=== PATIENT | male | born 1990 | race Two or more races ===

== ENCOUNTER 2017-01-07 13:18 | Emergency (ER) | payer SELFPAY ==
--- NOTE | ~2017-01-07 | CR72 ---
[facility] A Service of [facility] & [facility] RADIOLOGY TEXT RESULTS PATIENT: FELIPE GILES LOCATION: [facility] : [birth year] UNIT #: [id number] AGE: [address]: Geraldine Tavarez MD SEX: M ORDER DR: [id number] [facility] [address] [place], [place] [address] [id number] MR#: [id number] Acc #: [id number] NAME: FELIPE GILES : 1990 SEX: M STUDY DATE/TIME: 01/07/2017 14:32 UNIT: [facility] ROOM: STUDY DESCRIPTION: CR Chest Single View Portable Attending Physician: Geraldine Tavarez M.D. Ordering Physician: Geraldine Tavarez M.D. Primary Care Physician: No Primary Care Physician MEDICAL IMAGING REPORT This report is preliminary unless electronic signature is present EXAM Portable chest. INDICATION Wheezing and shortness of breath today. COMPARISON No comparisons. FINDINGS Lungs are well expanded and clear. Heart size normal. The visualized osseous structures are unremarkable. IMPRESSION No active disease. Dictated by... Danish Salmeron M.D. THIS IS AN ELECTRONICALLY VERIFIED REPORT Danish Salmeron M.D. at 01/07/2017 5:06 PM MISSY/shamika TD: 01/07/2017 16:27 JOB #: [id number] MEDICAL IMAGING REPORT Page 1 of 1 COPY
--- NOTE | ~2017-01-07 | EKG ---
PATIENT: FELIPE GILES UNIT #: [id number] Ventricular Rate: 81 BPM Atrial Rate: 81 BPM P-R Interval: 152 ms QRS Duration: 90 ms Q-T Interval: 324 ms QTC Calculation(Bezet): 376 ms P [place]: 67 degrees Calculated R [place]: 61 degrees Calculated T [place]: 35 degrees Diagnosis Line: Normal sinus rhythm with sinus arrhythmia Diagnosis Line: Normal ECG Diagnosis Line: No previous ECGs available Diagnosis Line: Confirmed by REBECA ESPARZA MD ([id number]) on Diagnosis Line: 01/08/2017 9:03:49 AM INTERPRETING MD: VILMA BURGOS
== END 2017-01-07 15:23 | disposition home or self-care (01) ==
LOC: CED 13:18
DX: J98.01 Acute bronchospasm (principal); F17.210 Nicotine dependence, cigarettes, uncomplicated
CPT/HCPCS: 71010; 93005; 94640; 96365; 96375; 99285; J2930; J3475